=== PATIENT | female | born 1980 | race Hispanic/Latino ===

== ENCOUNTER → 2023-05-13 10:55 | Outpatient (CLI) | payer OTHER, SELFPAY | PROVIDERS: Visit Provider Registered Nurse | DX: N39.0 Urinary tract infection, site not specified (principal) | CPT/HCPCS: 87086 ==

== ENCOUNTER 2023-05-13 11:20 | Emergency (ER) | payer OTHER, SELFPAY ==
[2023-05-13] VITALS (11 sets, daily range): BP systolic 111–142; BP diastolic 68–94; PULSE 86–99; RESP 16–24; TEMP 36; O2SAT 97–100; BMI 39.3
[2023-05-13 12:03] LABS: Add Manual Diff / Slide Review NO; Basophils Absolute Auto 0 /uL (0-100); Basophils Percent Auto 0.4 % (0-2); Eosinophils Absolute Auto 0 /uL (0-450); Eosinophils Percent Auto 0.2 % (2-4); Hematocrit 34.3 % (36-46); Hemoglobin 11.5 g/dL (12.0-16.0); Lymphocytes Absolute Auto 1000 /uL (1100-4500); Lymphocytes Percent Auto 8.6 % (25-40); Mean Corpuscular HGB Conc 33.5 % (30-36); Mean Corpuscular Hemoglobin 27.7 PG (26-34); Mean Corpuscular Volume 82.5 fL (80-100); Monocytes Absolute Auto 700 /uL (0-900); Monocytes Percent Auto 6.2 % (3-14); Neutrophils Absolute Auto 9700 /uL (1500-7000); Neutrophils Percent Auto 84.6 % (50-75); Platelet Count 413 X10^3/uL (150-400); Red Blood Cell Count 4.15 X10^6/uL (4.0-5.2); White Blood Cell Count 11.4 X10^3/uL (4.5-11.0)
[2023-05-13 12:15] LABS: Alanine Aminotransferase 32 IU/L (<35); Albumin 3.7 g/dL (3.5-5.0); Albumin Globulin Ratio 0.8 (1.0-2.8); Alkaline Phosphatase 98 U/L (38-126); Aspartate Aminotransferase 61 IU/L (14-36); BUN Creatinine Ratio 13.2 (6-22); Bilirubin Total 1.2 mg/dL (0.2-1.3); Blood Urea Nitrogen 7 mg/dL (7-17); Calcium 9.1 mg/dL (8.4-10.2); Carbon Dioxide 27 mmol/L (22-32); Chloride 101 mmol/L (98-107); Estimated Glomerular Filt Rate > 60 mL/min (>60); Globulin 4.6 g/dL (1.7-4.1); Glucose 108 mg/dL (70-100); HEMOLYSIS < 15 (0-50); Lipase 29 U/L (23-300); Potassium 3.6 mmol/L (3.4-5.1); Sodium 135 mmol/L (137-145); Total Protein 8.3 g/dL (6.3-8.2)
[2023-05-13 12:21] LABS: Appearance Urine UA CLOUDY; Bilirubin Urine UA 1+ (NEGATIVE); Color Urine UA YELLOW; Glucose Urine UA NEGATIVE (Negative); Ketones Urine UA 2+ (NEGATIVE); Leukocyte Esterase Urine UA 2+ (NEGATIVE); Nitrite Urine UA POSITIVE (Negative); Occult Blood Urine UA 3+ (Negative); Protein Urine UA 1+ (Negative); Specific Gravity Urine UA 1.025 (1.000-1.035)
[2023-05-13 12:22] LABS: pH Urine UA 5.5 (4.5-8.0)
--- NOTE | 2023-05-13 12:22 | PC.NURSE ---
Patient states that they had nausea and vomiting this morning and last vomited at 4am. This RN offered patient the nausea medication that is ordered PRN but they declined stating I don't like to take any medications. Patient denies to having current nausea and isn't actively vomiting.
[2023-05-13 12:24] LABS: Pregnancy Test Urine Negative (Negative)
[2023-05-13 12:26] LABS: Bacteria Urine Many (>30); RBC Urine 5-10/HPF (0-5/HPF); Squamous Epithelial Cell Urine 1-5 /HPF (0-5/HPF); Urine Volume 10mL (spun); WBC Urine 5-10/HPF (0-5/HPF)
--- NOTE | 2023-05-13 12:56 | ED_ITS ---
HPI - Abdominal Pain General Chief Complaint: Abdominal Pain Stated Complaint: [facility] sent for CT possible appendix issue Time Seen by Provider: 05/13/23 12:42 Source: patient Mode of arrival: Ambulatory Limitations: no limitations History of Present Illness HPI narrative: 42-year-old female with recent UTIs. Patient states she had treatment with Bactrim DS twice daily for 5 days on 04/22/2023 she completed this. She has had continued right lower quadrant pain that has gotten worse recently. She notes it radiates to the side but not the flank. Has had some sweats overnight. Subjective fevers. She has had some nausea and vomiting she is doing better with the vomiting currently. She denies any back or flank pain. She states pain is pretty much localized to the right but when she pushes on her abdomen if she pushes on the left it hurts on the right. Patient states she has not had any dysuria, urgency or frequency. She has had diarrheal stools altering with regular stools. Did have one dark stool. No bloody or mucousy stools. Patient states no daily prescription medications. She is taken ibuprofen [id number] which has been helpful. Denies any major surgeries. No known drug allergies. No tobacco, alcohol or recreational drugs. Went to the walk-in clinic which showed a positive urine but was sent for evaluation. Related Data Previous Rx's Medication Instructions Recorded amoxicillin 875 mg-potassium 1 tab PO BID #20 tabs 05/13/23 clavulanate 125 mg tablet amoxicillin 875 mg-potassium 1 tab PO BID #20 tabs 05/13/23 clavulanate 125 mg tablet ondansetron 4 mg disintegrating 4 mg PO Q6H #10 tabs 05/13/23 tablet ondansetron 4 mg disintegrating 4 mg PO Q6H #10 tabs 05/13/23 tablet oxycodone 5 mg tablet 5 mg PO Q6H PRN pain #14 tabs 05/13/23 oxycodone 5 mg tablet 5 mg PO Q6H PRN pain #14 tabs 05/13/23 oxycodone 5 mg tablet 5 mg PO Q6H PRN pain #14 tabs 05/13/23 oxycodone 5 mg tablet 5 mg PO QID PRN pain #14 tabs 05/13/23 oxycodone-acetaminophen 5 mg-325 1 tab PO QID PRN pain #14 tabs 05/13/23 mg tablet (Percocet) Allergies Allergy/AdvReac Type Severity Reaction Status Date / Time No Known Drug Allergies Allergy Verified 05/13/23 11:11 Review of Systems Review of Systems ROS Unobtainable: All systems reviewed & are unremarkable except as noted in HPI and below Patient History Social History Smoking Status: Never smoker Smoking Status: Never smoker Substance Use Type: does not use Exam Narrative Exam Narrative: GENERAL: Alert and oriented x three, female in mild distress. HEENT: Head normocephalic, atraumatic, EOMI, pupils reactive, face symmetric, moist mucous membranes NECK: Supple, full range of motion CARDIOVASCULAR: Regular rate and rhythm without murmurs, rubs or gallops. RESPIRATORY: Breath sounds equal bilaterally, no wheezes rales or rhonchi. ABDOMEN: Soft, positive for right lower quadrant tenderness. Positive for tenderness on the right when palpated on the left, Normoactive bowel sounds all 4 quadrants. No guarding or rebound, rigidity, no mass : No CVA tenderness bilaterally. EXTREMITIES: Normal range of motion, no clubbing or edema. Neurovascularly intact NEUROLOGICAL: Cranial nerves II through XII grossly intact. Moving all extremities SKIN: Warm, dry, no petechiae, no rashes or lesions. Initial Vital Signs Initial Vital Signs: Vital Signs Temperature 96.8 F L 05/13/23 11:31 Pulse Rate 99 H 05/13/23 11:31 Respiratory Rate 18 05/13/23 11:31 Blood Pressure 142/94 H 05/13/23 11:31 Pulse Oximetry 99 05/13/23 11:31 Oxygen Delivery Method Room Air 05/13/23 11:31 Course Orders Ordered: ED Orders 05/13/23 11:55 Cancer Antigen 125 Stat Complete Blood Count AUTO DIFF Stat Comprehensive Metabolic Panel Stat Human Epididymis Prot 4 Stat Inhibin B Stat Lipase Stat 05/13/23 12:15 Test Urine Stat 05/13/23 12:16 Ictotest Urine Stat Urinalysis and Microscopic Stat 05/13/23 13:55 CT abdomen pelvis w con Stat 05/13/23 14:55 US pelvic complete Stat Discontinued Medications Ampicillin Sodium/Sulbactam (Sodium 3 gm/ Sodium Chloride) 100 mls @ 200 mls/hr IV NOW ONE Stop: 05/13/23 14:48 Last Infusion: 05/13/23 16:10 Dose: Infused Documented By: Admin: 05/13/23 15:18 Dose: 200 mls/hr Documented By: BENJAMIN Ondansetron HCl (Ondansetron 4 Mg/2 Ml Inj) 4 mg IV NOW PRN PRN Reason: Nausea And Vomiting Ondansetron HCl (Ondansetron 4 Mg Odt) 4 mg PO NOW PRN PRN Reason: Nausea And Vomiting Vital Signs Vital signs: Vital Signs - 8 hr 05/13/23 12:00 05/13/23 12:01 05/13/23 12:01 Pulse Rate 93 H 94 H Respiratory Rate 24 17 Blood Pressure 116/71 Pulse Oximetry 97 97 Oxygen Delivery Method 05/13/23 12:30 05/13/23 12:30 05/13/23 13:00 Pulse Rate 87 Respiratory Rate 20 Blood Pressure 120/72 116/71 Pulse Oximetry 97 Oxygen Delivery Method 05/13/23 13:00 05/13/23 13:30 05/13/23 13:30 Pulse Rate 89 86 Respiratory Rate 22 16 Blood Pressure 120/81 Pulse Oximetry 98 99 Oxygen Delivery Method Room Air 05/13/23 13:45 05/13/23 16:17 05/13/23 16:18 Pulse Rate 90 86 Respiratory Rate Blood Pressure 117/70 Pulse Oximetry 100 98 Oxygen Delivery Method 05/13/23 16:18 05/13/23 16:30 05/13/23 16:30 Pulse Rate 88 88 Respiratory Rate 21 21 Blood Pressure 111/68 Pulse Oximetry 99 99 Oxygen Delivery Method MDM - Abdominal Pain Lab Data 05/13/23 11:55 05/13/23 11:55 Labs: Lab Results 05/13/23 05/13/23 05/13/23 Range/Units 11:55 12:15 12:16 WBC 11.4 H (4.5-11.0) X10^3/uL RBC 4.15 (4.0-5.2) X10^6/uL Hgb 11.5 L (12.0-16.0) g/dL Hct 34.3 L (36-46) % MCV 82.5 (80-100) fL MCH 27.7 (26-34) PG MCHC 33.5 (30-36) % RDW 14.0 (11.6-14.8) % Plt Count 413 H (150-400) X10^3/uL Neut % (Auto) 84.6 H (50-75) % Lymph % (Auto) 8.6 L (25-40) % [place] % (Auto) 6.2 (3-14) % Eos % (Auto) 0.2 L (2-4) % Baso % (Auto) 0.4 (0-2) % Neut # (Auto) 9700 H (9993-4116) /uL Lymph # (Auto) 1000 L (3016-0066) /uL [place] # (Auto) 700 (0-900) /uL Eos # (Auto) 0 (0-450) /uL Baso # (Auto) 0 (0-100) /uL Sodium 135 L (137-145) mmol/L Potassium 3.6 (3.4-5.1) mmol/L Chloride 101 (98-107) mmol/L Carbon Dioxide 27 (22-32) mmol/L BUN 7 (7-17) mg/dL Creatinine 0.53 (0.52-1.04) mg/dL Estimated GFR > 60 (>60) mL/min BUN/Creatinine Ratio 13.2 (6-22) Glucose 108 H (70-100) mg/dL Calcium 9.1 (8.4-10.2) mg/dL Total Bilirubin 1.2 (0.2-1.3) mg/dL AST 61 H (14-36) IU/L ALT 32 (<35) IU/L Alkaline Phosphatase 98 (38-126) U/L Total Protein 8.3 H (6.3-8.2) g/dL Albumin 3.7 (3.5-5.0) g/dL Globulin 4.6 H (1.7-4.1) g/dL Albumin/Globulin Ratio 0.8 L (1.0-2.8) Lipase 29 (23-300) U/L CA 125 Antigen 79.7 H (0-35) U/mL Urine Color Yellow Urine Appearance Cloudy Urine pH 5.5 (4.5-8.0) Ur Specific [place] 1.025 (1.000-1.035) Urine Protein 1+ H (Negative) Urine Glucose (UA) Negative (Negative) g/dL Urine Ketones 2+ H (NEGATIVE) Urine Occult Blood 3+ H (Negative) Urine Nitrate Positive H (Negative) Urine Bilirubin 1+ H (NEGATIVE) Ur Bilirubin Confirm TNP Urine Urobilinogen 1.0 (0.2) E.U./dL Ur Leukocyte Esterase 2+ H (NEGATIVE) Urine RBC 5-10/hpf H (0-5/HPF) Urine WBC 5-10/hpf H (0-5/HPF) Ur Squamous Epith Cells 1-5 /hpf (0-5/HPF) Urine Bacteria Many (>30) H (None) Vol Urine Centrifuged 10ml (spun) Urine Test Negative (Negative) Imaging Data CT scan - abdomen/pelvis: Radiologist's Impression: [address] [address] [address] Scan Report Signed Patient: Kimberli Duran MR#: [id number] : 1980 Acct:[id number] Age/Sex: 42 / F Date of Service: 05/13/23 Loc: ED Accession Number: [id number] Procedure: CT abdomen pelvis w con Ordering Provider: Bibi Alvarado D.O. PROCEDURE: CT ABDOMEN PELVIS W CON INDICATIONS: +UTI, RLQ pain, increased w/ palp L, r/o appy TECHNIQUE: After the administration of intravenous contrast, axial sections acquired from the lung bases to the pubic symphysis. Coronal and sagittal reformats were performed. For radiation dose reduction, the following was used: automated exposure control, adjustment of mA and/or kV according to patient size. COMPARISON: None. FINDINGS: Image quality: Diagnostic. Lower Chest: No significant findings. ABDOMEN: Liver: No solid mass. Gallbladder: No radiopaque gallstones or wall thickening. Biliary ducts: No biliary dilation. Pancreas: No ductal dilation. Spleen: Size is within normal limits. Adrenal Glands: No adrenal nodules. Kidneys and Ureters: There is mild left hydronephrosis and left ureteral dilatation extending into the left adnexa. No right hydronephrosis. No solid mass. No complex renal cystic lesion which requires follow up. 2 mm nonobstructing right interpolar renal calculus is present. Stomach and Bowel: Multiple moderately distended loops of small-bowel are present. Terminal ileum is decompressed. Colon is decompressed. Appendix is not seen. No evidence of appendicitis. Peritoneum: No pneumoperitoneum. A small amount of high density ascites is present predominantly within the pelvis. Severe fat stranding is present , predominantly within the pelvis anteriorly. Peritoneal nodularity is seen within the right lower abdomen anteriorly. Ventral Wall: No significant ventral hernia. Abdominal Nodes: No retroperitoneal or mesenteric adenopathy by size criteria. Vessels: Aorta and inferior vena cava are normal in size. PELVIS: Pelvic Organs: There is a thick-walled cystic focus within the left adnexa measuring 43 mm diameter. Intrauterine device is present. Bladder: No bladder wall thickening, accounting for underdistention. Pelvic Nodes: No enlarged lymph nodes. Miscellaneous: No inguinal hernias are seen. Bones: No aggressive osseous abnormality. IMPRESSION: 1. High density fluid within the pelvis, consistent with infection versus hemorrhage. 2. Mesenteric fat stranding in nodularity, consistent with infection versus carcinomatosis. 3. Thick-walled left adnexal cyst, possibly indicating a tubo-ovarian abscess given the clinical history of urinary tract infection. Continued follow-up is recommended to exclude underlying neoplasm. 4. Appendix is not seen. No evidence of appendicitis. 5. Dilated small bowel loops, indicating small bowel obstruction. 6. The left adnexal lesion is associated with left ureteral obstruction, and mild left hydronephrosis. 7. Nonobstructing right renal calculus. Dictated by: Dee Dee Rod M.D. on 05/13/2023 at 14:17 Approved by: Dee Dee Rod M.D. on 05/13/2023 at 14:22 US - WOOD M[employer]ING MACHINE OPERATOR: Radiologist's Impression: Close Pelvis Ultrasound (Signed) Dee Dee Rod - 05/13/23 Abdomen/Pelvis CT (Signed) Dee Dee Rod - 05/13/23 Launch?[address] [address] Ultrasound Report Signed Patient: Kimberli Duran MR#: [id number] : 1980 Acct:[id number] Age/Sex: 42 / F Date of Service: 05/13/23 Loc: ED Accession Number: [id number] Procedure: US pelvic complete Ordering Provider: Bibi Alvarado D.O. PROCEDURE: US PELVIC COMPLETE INDICATIONS: LEFT ADNEXAL MASS ON CT TECHNIQUE: Real-time scanning was performed of the pelvic organs, with image documentation. Additional endovaginal scanning was necessary due to incomplete visualization of the adnexal and endometrial structures by transabdominal scanning. COMPARISON: [facility], CT, CT ABDOMEN PELVIS W CON, 05/13/2023, 14:05. FINDINGS: Uterus: Uterus is anteverted and normal in size at 8.0 x 4.1 x 6.4 cm. The myometrium is homogeneous. The endometrium measures 5 mm combined thickness. Intrauterine device is grossly positioned Ovaries: The right ovary measures 2.0 x 2.1 x 1.3 cm, with a calculated ovarian volume of 3.0 cc. The left ovary measures 5.9 x 3.7 x 4.3 cm, with a calculated ovarian volume of 50 cc. The ovaries have a normal sonographic appearance. Less than 12 follicles can be seen in each ovary. No adnexal masses are seen. There are 2 complex cysts within the left ovary measuring 40 mm and 21 mm. Other: No pathologic free abdominal or pelvic fluid. IMPRESSION: 1. Complex left ovarian cysts. We strive to produce accurate, complete, and clear reports of imaging services. To assist us in improving patient care, this report was composed using standard report templates and voice recognition software. Therefore, it may contain abnormal punctuation, insertions and/or omissions. Occasional wrong-word or sound-alike substitutions may occur. Though we review the report and make efforts to correct it, we do recommend that the report be read carefully in proper context to recognize any text inaccuracies. Dictated by: Dee Dee Rod M.D. on 05/13/2023 at 16:16 Approved by: Dee Dee Rod M.D. on 05/13/2023 at 16:18 [facility] Narrative Medical decision making narrative: 42-year-old female with at least a week's worth of right lower quadrant pain which has been slowly worsening. She has had some night sweats, subjective fevers. Does have a nitrite positive urine but also has tenderness in the right lower quadrant and increased pain on the right lower quadrant with palpation of the left. Patient does still have her appendix. She does not appear septic. Vitals appear appropriate. Patient has a white count 11.4 hemoglobin 11 5 with a hematocrit of 34, platelets are 413 leftward shift. Sodium is 135 otherwise normal electrolytes renal function, glucose of 108, AST 61 ALT, total bili alk phos are negative. Lipase is 29. Total protein and globulin are elevated. Urine is negative, patient has nitrate positive urine with 5-10 RBCs 5-10 WBCs and many bacteria. Discussed with patient may have a UTI she does not have any flank pain making pyelonephritis less likely but is tender in the right lower quadrant. After discussion about abdominal ultrasound versus CT to rule out appendicitis patient elects for CT imaging. CT imaging shows density fluid within the pelvis consistent with infection versus hemorrhage, mesenteric fat stranding and nodularity consistent with infection versus carcinomatosis, thick-walled left adnexal this indicating tubo-ovarian abscess given recent history of UTI, continue follow up to exclude underlying neoplasm, appendix not seen but no evidence of appendicitis, dilated small bowel loops and can not indicating small bowel obstruction. Left adnexal lesion left ureteral obstruction and mid left hydro. Nonobstructing right renal calculi. Spoke with Dr. Saavedra for OBGYN. Asked if we can add on a CA 125, Pelvic ultrasound for better delineation and she will come and see patient. Updated patient about current plan. Plan for antibiotics for potential infection, pelvic ultrasound was reviewed with Dr. Saavedra. Patient will be seen in the office. Patient feels comfortable with this plan. Patient seen by Dr. Saavedra in the department. CA 125 is elevated she asked her add on an 2 additional labs. Patient has follow-up set up with the 23 of May with the office. Dr. Saavedra was sent saw her prescriptions but 1 of them would not go through so had to be recent by myself and then changed as they had no oxycodone and had to be changed to Percocet. Discharge Plan Departure Patient Disposition: Home Clinical Impression: Complex ovarian cyst UTI (urinary tract infection) Qualifiers: Urinary tract infection type: acute cystitis Hematuria presence: with hematuria Qualified Code(s): N30.01 - Acute cystitis with hematuria Activity Restrictions/Additional Instructions: Follow up with Dr. Saavedra at your appointment on May 23 at 9am. You do have labs currently pending that will take several days to result. Follow up with Dr. Saavedra/OBGYN for these results. Take antibiotics until completed. Take Zofran 1 tablet every 6 hours as needed for nausea. Take pain medication as prescribed. May take 1-2 tablets every 6 hours as needed. Prescription sent to [facility] in [place] by Dr. Saavedra. Please return for fevers, new or worsening abdominal back or flank pain, persistent vomiting, inability to have a bowel movement, difficulty with urination or other new or concerning changes. Prescriptions: New amoxicillin-pot clavulanate 875-125 mg tablet 1 tab PO BID Qty: 20 0RF ondansetron 4 mg tablet,disintegrating 4 mg PO Q6H Qty: 10 0RF oxycodone 5 mg tablet 5 mg PO Q6H PRN (Reason: pain) Qty: 14 0RF amoxicillin-pot clavulanate 875-125 mg tablet 1 tab PO BID Qty: 20 0RF ondansetron 4 mg tablet,disintegrating 4 mg PO Q6H Qty: 10 0RF oxycodone 5 mg tablet 5 mg PO Q6H PRN (Reason: pain) Qty: 14 0RF oxycodone 5 mg tablet 5 mg PO Q6H PRN (Reason: pain) Qty: 14 0RF oxycodone 5 mg tablet 5 mg PO QID PRN (Reason: pain) Qty: 14 0RF oxycodone-acetaminophen [Percocet] 5-325 mg tablet 1 tab PO QID PRN (Reason: pain) Qty: 14 0RF Referrals: Kathie Saavedra MD [Physician] - Miscellaneous,DoctorMD [Primary Care Provider] - Stand Alone Forms: Patient Portal/API
--- NOTE | 2023-05-13 13:55 | DI.CT.S_ITS ---
PROCEDURE: CT ABDOMEN PELVIS W CON INDICATIONS: +UTI, RLQ pain, increased w/ palp L, r/o appy TECHNIQUE: After the administration of intravenous contrast, axial sections acquired from the lung bases to the pubic symphysis. Coronal and sagittal reformats were performed. For radiation dose reduction, the following was used: automated exposure control, adjustment of mA and/or kV according to patient size. COMPARISON: None. FINDINGS: Image quality: Diagnostic. Lower Chest: No significant findings. ABDOMEN: Liver: No solid mass. Gallbladder: No radiopaque gallstones or wall thickening. Biliary ducts: No biliary dilation. Pancreas: No ductal dilation. Spleen: Size is within normal limits. Adrenal Glands: No adrenal nodules. Kidneys and Ureters: There is mild left hydronephrosis and left ureteral dilatation extending into the left adnexa. No right hydronephrosis. No solid mass. No complex renal cystic lesion which requires follow up. 2 mm nonobstructing right interpolar renal calculus is present. Stomach and Bowel: Multiple moderately distended loops of small-bowel are present. Terminal ileum is decompressed. Colon is decompressed. Appendix is not seen. No evidence of appendicitis. Peritoneum: No pneumoperitoneum. A small amount of high density ascites is present predominantly within the pelvis. Severe fat stranding is present , predominantly within the pelvis anteriorly. Peritoneal nodularity is seen within the right lower abdomen anteriorly. Ventral Wall: No significant ventral hernia. Abdominal Nodes: No retroperitoneal or mesenteric adenopathy by size criteria. Vessels: Aorta and inferior vena cava are normal in size. PELVIS: Pelvic Organs: There is a thick-walled cystic focus within the left adnexa measuring 43 mm diameter. Intrauterine device is present. Bladder: No bladder wall thickening, accounting for underdistention. Pelvic Nodes: No enlarged lymph nodes. Miscellaneous: No inguinal hernias are seen. Bones: No aggressive osseous abnormality. IMPRESSION: 1. High density fluid within the pelvis, consistent with infection versus hemorrhage. 2. Mesenteric fat stranding in nodularity, consistent with infection versus carcinomatosis. 3. Thick-walled left adnexal cyst, possibly indicating a tubo-ovarian abscess given the clinical history of urinary tract infection. Continued follow-up is recommended to exclude underlying neoplasm. 4. Appendix is not seen. No evidence of appendicitis. 5. Dilated small bowel loops, indicating small bowel obstruction. 6. The left adnexal lesion is associated with left ureteral obstruction, and mild left hydronephrosis. 7. Nonobstructing right renal calculus. Dictated by: Dee Dee Rod M.D. on 05/13/2023 at 14:17 Approved by: Dee Dee Rod M.D. on 05/13/2023 at 14:22
--- NOTE | 2023-05-13 14:55 | DI.US.S_ITS ---
PROCEDURE: US PELVIC COMPLETE INDICATIONS: LEFT ADNEXAL MASS ON CT TECHNIQUE: Real-time scanning was performed of the pelvic organs, with image documentation. Additional endovaginal scanning was necessary due to incomplete visualization of the adnexal and endometrial structures by transabdominal scanning. COMPARISON: [facility], CT, CT ABDOMEN PELVIS W CON, 05/13/2023, 14:05. FINDINGS: Uterus: Uterus is anteverted and normal in size at 8.0 x 4.1 x 6.4 cm. The myometrium is homogeneous. The endometrium measures 5 mm combined thickness. Intrauterine device is grossly positioned Ovaries: The right ovary measures 2.0 x 2.1 x 1.3 cm, with a calculated ovarian volume of 3.0 cc. The left ovary measures 5.9 x 3.7 x 4.3 cm, with a calculated ovarian volume of 50 cc. The ovaries have a normal sonographic appearance. Less than 12 follicles can be seen in each ovary. No adnexal masses are seen. There are 2 complex cysts within the left ovary measuring 40 mm and 21 mm. Other: No pathologic free abdominal or pelvic fluid. IMPRESSION: 1. Complex left ovarian cysts. We strive to produce accurate, complete, and clear reports of imaging services. To assist us in improving patient care, this report was composed using standard report templates and voice recognition software. Therefore, it may contain abnormal punctuation, insertions and/or omissions. Occasional wrong-word or sound-alike substitutions may occur. Though we review the report and make efforts to correct it, we do recommend that the report be read carefully in proper context to recognize any text inaccuracies. Dictated by: Dee Dee Rod M.D. on 05/13/2023 at 16:16 Approved by: Dee Dee Rod M.D. on 05/13/2023 at 16:18
[2023-05-13] MEDS: AMPICILLIN/SULBACTAM 3 GM 3 GM in SODIUM CHLORIDE 0.9% 100 ML IV (15:18)
[2023-05-13 15:45] LABS: Cancer Antigen 125 79.7 U/mL (0-35)
--- NOTE | 2023-05-13 16:10 | PC.NURSE ---
Dr. Saavedra at patient bedside.
--- NOTE | 2023-05-13 16:29 | PM.CN ---
History of Present Illness Consult details Date Patient Seen: 05/13/23 Time Patient Seen: 16:29 Chief complaint: [place] sent for CT possible appendix issue Reason for consult: Right lower quadrant pain, mass on the left ovary Narrative: Patient is a 42-year-old 3 para 3 who presented to the emergency department with right lower quadrant pain. Patient reports that her pain started about 3 weeks ago. She had some nausea. She has had some sweats. She has just not felt well. She presented this morning because things have gotten a little better but then they worsened at this morning. She had an episode of vomiting. She is having right lower quadrant pain worsened. Slight decrease in appetite. No change in bladder. Has had some diarrhea. She was treated for a UTI with 5 days of antibiotics. She has had slight discoloration of her vaginal discharge. She still has her appendix. She has had 3 spontaneous vaginal deliveries without any complications during the , labor, or delivery. She is using an IUD for contraceptive management. She had a CT scan which showed a mass on the left ovary. This was followed by a pelvic ultrasound which shows a complex cyst on the left ovary. There was good flow into the left ovary. The right ovary appears normal. CT of abdomen/pelvis IMPRESSION: 1. High density fluid within the pelvis, consistent with infection versus hemorrhage. 2. Mesenteric fat stranding in nodularity, consistent with infection versus carcinomatosis. 3. Thick-walled left adnexal cyst, possibly indicating a tubo-ovarian abscess given the clinical history of urinary tract infection. Continued follow-up is recommended to exclude underlying neoplasm. 4. Appendix is not seen. No evidence of appendicitis. 5. Dilated small bowel loops, indicating small bowel obstruction. 6. The left adnexal lesion is associated with left ureteral obstruction, and mild left hydronephrosis. 7. Nonobstructing right renal calculus. Pelvic Ultrasound: IMPRESSION: 1. Complex left ovarian cysts. We strive to produce accurate, complete, and clear reports of imaging services. To assist us in improving patient care, this report was composed using standard report templates and voice recognition software. Therefore, it may contain abnormal punctuation, insertions and/or omissions. Occasional wrong-word or sound-alike substitutions may occur. Though we review the report and make efforts to correct it, we do recommend that the report be read carefully in proper context to recognize any text inaccuracies. CA-125 was 79.9 Meds Home Medications and Allergies Home Medications Medication Instructions Recorded Confirmed Type No Known Home Medications 02/13/19 05/13/23 History Allergies Allergy/AdvReac Type Severity Reaction Status Date / Time No Known Drug Allergies Allergy Verified 05/13/23 11:11 Exam Vital Signs (past 8 hours): - 05/13/23 11:31 05/13/23 11:44 05/13/23 11:44 Temperature 96.8 F L Pulse Rate 99 H 99 H Respiratory Rate 18 Blood Pressure 142/94 H 125/78 Pulse Oximetry 99 98 Oxygen Delivery Method Room Air 05/13/23 12:00 05/13/23 12:01 05/13/23 12:01 Temperature Pulse Rate 93 H 94 H Respiratory Rate 24 17 Blood Pressure 116/71 Pulse Oximetry 97 97 Oxygen Delivery Method 05/13/23 12:30 05/13/23 12:30 05/13/23 13:00 Temperature Pulse Rate 87 Respiratory Rate 20 Blood Pressure 120/72 116/71 Pulse Oximetry 97 Oxygen Delivery Method 05/13/23 13:00 05/13/23 13:30 05/13/23 13:30 Temperature Pulse Rate 89 86 Respiratory Rate 22 16 Blood Pressure 120/81 Pulse Oximetry 98 99 Oxygen Delivery Method Room Air 05/13/23 13:45 05/13/23 16:17 Temperature Pulse Rate 90 86 Respiratory Rate Blood Pressure Pulse Oximetry 100 98 Oxygen Delivery Method Oxygen Delivery Method Room Air Narrative Exam Narrative: Generally: A well-developed, well nourished, pleasant female, no acute distress, lying on the gurney. Lungs: Clear to auscultation bilaterally Cardiovascular: Regular rate and rhythm Abdomen: Soft and flat. No guarding or rebound tenderness. No hepatosplenomegaly. No masses palpable Objective Labs 05/13/23 11:55 05/13/23 11:55 Labs: Laboratory Results - last 24 hr 05/13/23 05/13/23 05/13/23 11:55 12:15 12:16 WBC 11.4 H RBC 4.15 Hgb 11.5 L Hct 34.3 L MCV 82.5 MCH 27.7 MCHC 33.5 RDW 14.0 Plt Count 413 H Neut % (Auto) 84.6 H Lymph % (Auto) 8.6 L [place] % (Auto) 6.2 Eos % (Auto) 0.2 L Baso % (Auto) 0.4 Neut # (Auto) 9700 H Lymph # (Auto) 1000 L [place] # (Auto) 700 Eos # (Auto) 0 Baso # (Auto) 0 Sodium 135 L Potassium 3.6 Chloride 101 Carbon Dioxide 27 BUN 7 Creatinine 0.53 Estimated GFR > 60 BUN/Creatinine Ratio 13.2 Glucose 108 H Calcium 9.1 Total Bilirubin 1.2 AST 61 H ALT 32 Alkaline Phosphatase 98 Total Protein 8.3 H Albumin 3.7 Globulin 4.6 H Albumin/Globulin Ratio 0.8 L Lipase 29 CA 125 Antigen 79.7 H Urine Color Yellow Urine Appearance Cloudy Urine pH 5.5 Ur Specific [place] 1.025 Urine Protein 1+ H Urine Glucose (UA) Negative Urine Ketones 2+ H Urine Occult Blood 3+ H Urine Nitrate Positive H Urine Bilirubin 1+ H Ur Bilirubin Confirm TNP Urine Urobilinogen 1.0 Ur Leukocyte Esterase 2+ H Urine RBC 5-10/hpf H Urine WBC 5-10/hpf H Ur Squamous Epith Cells 1-5 /hpf Urine Bacteria Many (>30) H Vol Urine Centrifuged 10ml (spun) Urine Test Negative PFSH Tobacco & Substance Use Smoking Status: Never smoker Assessment & Plan Assessment and plan (1) Complex ovarian cyst: Status: Acute (2) UTI (urinary tract infection): Qualifiers: Hematuria presence: with hematuria Urinary tract infection type: acute cystitis Qualified Code(s): N30.01 - Acute cystitis with hematuria Status: Acute (3) Elevated CA-125: Status: Acute Plan: Assessment: 42-year-old 3 para 3 with a complex left adnexal mass, recurrent urinary tract infection, and elevated CA 125 Plan: Augmentin 875 mg b.i.d. x7 days Ondansetron 4 mg ODT Rx for pain meds Inhibin B and HE 4 ordered Follow-up 05/23/23 at 9:00 a.m. Patient to return to ED if she has uncontrolled nausea and vomiting or worsening pain.
== END 2023-05-13 16:41 | disposition home or self-care (01) ==
PROVIDERS: Emergency Provider Emergency Medicine
DX: N30.01 Acute cystitis with hematuria (principal); N83.292 Other ovarian cyst, left side; R97.1 Elevated cancer antigen 125 [CA 125]
CPT/HCPCS: 36415; 74177; 76830; 76856; 80053; 81001; 81025; 83520; 83690; 85025; 86304; 86305; 87086; 93975; 96365; 99284; J0295; Q9967

== ENCOUNTER → 2023-05-23 11:47 | Outpatient (CLI) | payer OTHER, SELFPAY ==
[2023-05-24 13:36] LABS: Candida species Negative (Negative); Gardnerella vaginalis Negative (Negative); Trichomoas vaginalis Positive (Negative)
== END ==
PROVIDERS: Visit Provider Obstetrics & Gynecology
DX: N89.8 Other specified noninflammatory disorders of vagina (principal); N76.0 Acute vaginitis
CPT/HCPCS: 87070; 87205; 87480; 87510; 87660

== ENCOUNTER 2023-06-13 11:20 | Inpatient (IN) | payer OTHER, SELFPAY ==
[2023-06-11 07:50] VITALS: BMI 38.7
[2023-06-13 11:45] VITALS: BP 143/85; PULSE 104; RESP 16; TEMP 37.1; O2SAT 98; BMI 38.7
[2023-06-13] MEDS: LACTATED RINGERS 1,000 ML 21 ML IV (12:02)
--- NOTE | 2023-06-13 14:16 | PM.GYNHP.1 ---
History of Present Illness History of Present Illness Reason for admission: pelvic pain Narrative: Kimberli Duran is a 42 year old female 3 para 3 who presents for a diagnostic laparoscopy with bilateral salpingectomy, possible left ovarian cystectomy versus left oophorectomy. This is being done due to persistent pelvic pain and a presumed dermoid on ultrasound. Patient is also not desiring anymore children. [facility] Social History Smoking Status: Never smoker alcohol intake: current Meds Home Medications and Allergies Home Medications Medication Instructions Recorded Confirmed Type oxycodone 5 mg tablet 5 mg PO Q6H PRN pain #14 tabs 05/13/23 06/12/23 Rx oxycodone 5 mg tablet 5 mg PO Q6H PRN pain #14 tabs 05/13/23 06/12/23 Rx oxycodone 5 mg tablet 5 mg PO Q6H PRN pain #14 tabs 05/13/23 06/12/23 Rx oxycodone 5 mg tablet 5 mg PO QID PRN pain #14 tabs 05/13/23 06/12/23 Rx oxycodone-acetaminophen 5 mg-325 1 tab PO QID PRN pain #14 tabs 05/13/23 06/12/23 Rx mg tablet (Percocet) Allergies Allergy/AdvReac Type Severity Reaction Status Date / Time No Known Drug Allergies Allergy Verified 06/13/23 11:45 Exam Vital Signs (past 8 hours): - 06/13/23 11:45 Temperature 98.7 F Pulse Rate 104 H Respiratory Rate 16 Blood Pressure 143/85 H Pulse Oximetry 98 Oxygen Delivery Method Room Air Oxygen Delivery Method Room Air Narrative Exam Narrative: HEENT: No thyromegaly, no anterior cervical or supraclavicular lymphadenopathy. Lungs:Clear to auscultation bilaterally, no wheezes. Cardiovascular: Regular rate and rhythm, no murmurs, rubs, or gallops. Abdomen: No scars. No hepatosplenomegaly. No masses palpable. External genitalia: Normal Vagina: Normal Cervix: Normal Bimanual exam: 7 Week size anteverted uterus. Mobile. Left adnexal tenderness. 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 The risks including bleeding, infection, injury to the bowel, bladder, or ureters, or uterine perforation. She understands these risks and agrees to proceed. A full par Q was held and consent form was signed.
--- NOTE | 2023-06-13 14:19 | PM.PREOP ---
Pre-operative Note Interval Note History & Physical reviewed/Exam performed by Physician: Yes Changes to H&P: No H&P completed within 30 days and has changed as indicated here:: 06/13/23
[2023-06-13] MEDS: CEFAZOLIN 2 GM/100 ML PREMIX 100 ML IV (15:18)
--- NOTE | 2023-06-13 15:42 | SUR.OPER ---
Lithotomy on padded OR bed, head on pillow, arms secured on padded arm boards at <90 degrees abduction. Legs secured in padded yellow fins stirrups.
[2023-06-13] MEDS: PIPERACILLIN/TAZO 3.375 GM in SODIUM CHLORIDE 0.9% 100 ML IV ×2 (16:01→22:18)
[2023-06-13] MEDS: BUPIVACAINE 0.5% (PF) 30 ML VIAL INJ (19:12)
[2023-06-13 20:03] LABS: Add Manual Diff / Slide Review NO; Basophils Absolute Auto 0 /uL (0-100); Basophils Percent Auto 0.2 % (0-2); Eosinophils Absolute Auto 0 /uL (0-450); Hematocrit 32.4 % (36-46); Hemoglobin 10.6 g/dL (12.0-16.0); Lymphocytes Absolute Auto 700 /uL (1100-4500); Lymphocytes Percent Auto 5.1 % (25-40); Mean Corpuscular HGB Conc 32.8 % (30-36); Mean Corpuscular Hemoglobin 27.5 PG (26-34); Mean Corpuscular Volume 83.8 fL (80-100); Monocytes Absolute Auto 200 /uL (0-900); Monocytes Percent Auto 1.1 % (3-14); Neutrophils Absolute Auto 13600 /uL (1500-7000); Neutrophils Percent Auto 93.6 % (50-75); Platelet Count 191 X10^3/uL (150-400); Red Blood Cell Count 3.87 X10^6/uL (4.0-5.2); Red Cell Distribution Width 15.7 % (11.6-14.8); White Blood Cell Count 14.5 X10^3/uL (4.5-11.0)
--- NOTE | 2023-06-13 20:08 | PM.OP.1 ---
Operative Date/Time/Diagnoses Date of procedure: 06/13/23 Time of procedure: 20:08 Pre-op diagnosis: Intraoperative small-bowel injury Post-op diagnosis: same Procedure & Clinicians Procedure: 1. Exploratory laparotomy 2. Small bowel enterotomy primary repair 3. Extensive lysis of adhesions 4. Sigmoid colectomy 5. Drainage of pelvic abscess 6. Temporary abdominal closure Same procedure as scheduled: No Surgeon: Luis Lopez Family Medicine Resident: Lamont Duffy Anesthesia Type: General Operative Notes Procedure in detail: The patient is a 42-year-old woman who was undergoing a diagnostic laparoscopy with Dr. Saniya bhatt for presumed left ovarian dermoid cyst. Dr. Saavedra requested an intraoperative consultation after placing an umbilical 5 mm laparoscopic port using an Optiview and saw what appeared to be the inside of small bowel. I came to the operating room and saw that the camera was insight of what appeared to be small bowel with normal-appearing mucosa. We started out by making a small periumbilical incision to examine the bowel and repair the enterotomy. The enterotomy was closed with about 5 interrupted 3-0 silk sutures in the transverse manner. An attempt was made to examine the posterior wall of the small bowel but it was quite adherent to surrounding loops of bowel. The incision was opened slightly larger and it was noted that there was a dense mass of small bowel loops that were densely adherent to the lower anterior abdominal wall and the pelvic sidewalls. At this point we converted to an exploratory laparotomy by creating a low midline incision that extended from just above the umbilicus to the pubis. An Joe wound retractor was placed. There was significant inflammatory change in the pelvis involving edematous loops of small bowel and adnexal structures. Careful lysis of adhesions lasting greater than 1 hour ensued. The question came up that she could potentially have had a perforated appendicitis or perhaps an appendiceal malignancy and so dissection extended to the cecum and appendix but this was eventually felt to be essentially normal with perhaps some reactive inflammatory changes near the appendix tip. Peritoneal washings were obtained. At this point Dr. Duffy was consulted for a second opinion regarding condition of her bowel. We continued lysis of adhesions and it became clear eventually that the source of the inflammation was most likely severe sigmoid diverticulitis. There was a segment of the mid sigmoid colon that was the most likely source of the perforation although there was no active leakage for the moment. We elected to resect the diseased segment and the initial plan was to perform a primary anastomosis with a diverting loop ileostomy. The diseased segment of sigmoid colon was resected with 2 firings of the contour stapler with a green load. We resected approximately 10 cm of sigmoid colon. We divided the mesentery close to the bowel with the power seal device. There was some venous oozing posterior to the mid rectum. Initially the power seal device was used to control the bleeding along with a piece of Surgicel. We did resect portion of the right tube and ovary using the power seal device to create better visualization. We placed the anvil from a 29 EEA stapler into the proximal colon and closed it with a 2-0 PDS suture in a pursestring fashion. The smallest metal dilator was started with some loop into the rectum. There seemed to be point of obstruction roughly at the peritoneal reflection. A colonoscope was inserted and was able to be maneuvered to staple line. There did not appear to be any obvious stricture. Gentle manipulation then allowed the smallest metal dilator to be advanced to the staple line. Next, the EEA stapler was inserted and attempts were made to manipulate it up to the staple line but it did not pass easily. At this point it was noted that there was a large tear in the rectum. At approximately the level of the peritoneal reflection. Due to the level of the edema it was decided to abandon the plan for a primary anastomosis and create an end colostomy. At this point it was noted that there was some blood and clot in the Wright bag and methylene blue was injected into the bladder and a bladder injury was identified. It was assumed that the hole in the bladder was at the dome of the bladder but it was very difficult to identify any the anatomy due to the degree of edema and swelling. At this point Dr. Duffy, Dr. Saavedra and Dr. Lopez discuss the situation in the options. It was you need enema asleep decided that the patient would be best served transferred to another facility that had urological services as well as critical care and colorectal surgery. We irrigated the pelvis with about 2 L of warm saline. The anvil was removed and the distal colon was stapled off with the contour stapler. Hemostasis was noted. Finally we created a temporary abdominal closure using a fenestrated sheet of plastic between the viscera and abdominal wall. We then placed a blue towel in the subcutaneous space along with 2 fenestrated drains connected to a negative pressure canister. EBL: 50 mL Specimen: Sigmoid colon and right salpinx and possibly the right ovary Disposition: The patient was transferred to ICU temporarily while waiting for accepting facility. Post-operative Condition: stable Disposition: ICU
[2023-06-13 20:10] LABS: INR 1.8 (0.9-1.3); Prothrombin Time 21.3 SECONDS (9.4-12.5)
[2023-06-13 20:13] LABS: PTT Partial Thromboplastin Tim 34 SECONDS (25.1-36.5)
[2023-06-13 20:16] LABS: Alanine Aminotransferase 7 IU/L (<35); Albumin 1.4 g/dL (3.5-5.0); Albumin Globulin Ratio 0.6 (1.0-2.8); Alkaline Phosphatase 33 U/L (38-126); Aspartate Aminotransferase 12 IU/L (14-36); BUN Creatinine Ratio 11.1 (6-22); Bilirubin Total 0.5 mg/dL (0.2-1.3); Blood Urea Nitrogen 3 mg/dL (7-17); Calcium 6.8 mg/dL (8.4-10.2); Carbon Dioxide 14 mmol/L (22-32); Chloride 107 mmol/L (98-107); Estimated Glomerular Filt Rate > 60 mL/min (>60); Globulin 2.2 g/dL (1.7-4.1); Glucose 85 mg/dL (70-100); HEMOLYSIS < 15 (0-50); Potassium 3.8 mmol/L (3.4-5.1); Sodium 131 mmol/L (137-145); Total Protein 3.6 g/dL (6.3-8.2)
--- NOTE | 2023-06-13 20:58 | PM.GYNOP.1 ---
Operative Date/Time/Diagnoses Date of procedure: 06/13/23 Time of procedure: 20:59 Pre-op diagnosis: Left ovarian mass Left lower quadrant pain Post-op diagnosis: same Procedure & Clinicians Procedure: Procedures Operation Date: 06/13/23 12:45 Actual Procedure Side Surgeon p DIAGNOSTIC LAPAROSCOPY-ATTEMPTED, PERFORATED BOWEL, RIGHT SALPINGECTOMY, EXPLORATORY LAPAROTOMY, REPAIR SMALL BOWEL ENTEROTOMY, LYSIS OF ADHESIONS, SIGMOID COLECTOMY, SIGMOIDOSCOPY, TEMPORARY ABDOMINAL CLOSURE Kathie Saavedra MD Indications: 42-year-old with persistent left adnexal mass and left lower quadrant pain Appears on ultrasound to have a dermoid cyst of the left ovary Surgeon: Kathie Saavedra Poker Manager: Luis Lopez Anesthesia Type: General and Local Operative Notes Findings: Inadvertent enterotomy with first trocar placement Bloc pelvis Right fallopian tube edematous Significant inflammation of the large and small bowel Unable to visualize uterus, bladder, left ovary Significant adhesions of the large and small bowel Specimen(s): right tube Applied: catheter (Wright to continuous drainage) Blood products transfused: none Procedure in detail: After informed consent was obtained, the patient was taken to the operating room where she was placed in the dorsal supine position. After adequate general endotracheal anesthesia was achieved, she was placed in the dorsal lithotomy position, and prepped and draped in the usual sterile fashion. A time-out was performed. A bivalve speculum was placed into the vagina and the anterior lip of the cervix was grasped with a single-tooth tenaculum. The cervical os was sequentially dilated until the Zumi uterine manipulator could pass easily into the endometrial cavity. The single-tooth tenaculum was removed from the anterior lip of the cervix. The bivalve speculum was removed from the vagina. Attention was then turned to the abdomen where 6 cc of 0.5% Marcaine with epinephrine were injected in the umbilical fold. A 5 mm incision was made. The Veress needle was placed into the peritoneal cavity, and its placement confirmed by aspiration and drop test. The abdominal cavity was insufflated with 3.4 L of CO2. The Veress needle was removed, and with Vis A View, a 5 mm trocar was placed under direct visualization. The stylet was removed. Upon inspection with the laparoscoped the trocar was found to be in the small bowel. The carbon dioxide gas was turned off. General surgery was consulted. The remainder of the procedure is dictated by Dr. Lopez. The only addition to the procedure was that the right tube was found to be very edematous. After it was freed from surrounding tissue, it was grasped with a Frostproof. Using the power seal, the portion of the tube that could be visualized was amputated using cautery and cut. The tube was sent to pathology. Complications: other (Inadvertent enterotomy) Post-operative Condition: stable Disposition: ICU Plan for aftercare: Awaiting transfer to Tertiary [facility]
--- NOTE | 2023-06-13 21:22 | SUR.PHASEI ---
Patient transferred to ICU room 227 with cardiiac monitoring and with anesthesia and two RNs; patient remains intubated during transport. Bedside report given by OR surgical nurse to receiving ENROLLED AGENT.
--- NOTE | 2023-06-13 21:27 | DI.RAD.S_ITS ---
PROCEDURE: XR CHEST 1V INDICATIONS: Ng tube placement TECHNIQUE: One view of the chest was acquired. COMPARISON: [facility], CT, CT ABDOMEN PELVIS W CON, 05/13/2023, 14:05. FINDINGS: Surgical changes and devices: NG tube tip is below the left hemidiaphragm and is in the expected location of stomach lumen. ETT tip is at the level of huan and possibly extending to proximal right mainstem bronchus and can be pulled back 4 cm. Lungs and pleura: complete opacification of left hemithorax is seen with mediastinal shift to the left. Right lung is clear. No pleural effusion or pneumothorax. Mediastinum: Mediastinal contours appear normal. Heart size is normal. Bones and chest wall: No suspicious bony lesions. Overlying soft tissues appear unremarkable. IMPRESSION: Complete opacification of left hemithorax suggestive of extensive left lung atelectasis. Mediastinal shift to the left is seen. Right lung is clear. ETT tip appears into in to right proximal mainstem bronchus, should be pulled back by 4 cm. NG tube tip is below the left hemidiaphragm expected location of stomach lumen. Dictated by: Cornelio Cantor M.D. on 06/13/2023 at 21:58 Approved by: Cornelio Cantor M.D. on 06/13/2023 at 22:01
[2023-06-13 21:35] VITALS: BP 103/62; PULSE 79; RESP 16; O2SAT 100
--- NOTE | 2023-06-13 22:32 | PM.CN.EICU ---
History of Present Illness Consult details IF CAMERA ACTIVATED, patient seen via real-time interactive audiovisual communication: Camera activated Date Patient Seen: 06/13/23 Chief complaint: Dx Laparoscopy Consent obtained for tele-divorce lawyer care: Yes Patient Location: ICU Provider location (State): [place] Other participants/roles: RN Narrative: 42 yo female who who presented for a diagnostic laparoscopy with possible salphingectomy, possible L ovarian cystectomy vs. oopherectomy. Procedure was complicated by inadvertent enterotomy on first trocar placement. General surgery was consulted. Dense adhesions were encountered; a L pelvic abscess was drained and a sigmoid colectomy was performed; the cause was deemed to be severe sigmoid diverticulitis. The abdomen was temporarily closed. Efforts are underway for tertiary care transfer for definitive repair. Admitted to ICU due to ongoing mechanical ventilation. Post-operatively, has required NE for hemodynamic support. [facility], [facility] Social History Smoking Status: Never smoker alcohol intake: current Current Medications Current Medications Medications: Home Medications oxycodone 5 mg tablet 5 mg PO Q6H PRN pain #14 tabs 05/13/23 [Rx Confirmed 06/12/23] oxycodone 5 mg tablet 5 mg PO Q6H PRN pain #14 tabs 05/13/23 [Rx Confirmed 06/12/23] oxycodone 5 mg tablet 5 mg PO Q6H PRN pain #14 tabs 05/13/23 [Rx Confirmed 06/12/23] oxycodone 5 mg tablet 5 mg PO QID PRN pain #14 tabs 05/13/23 [Rx Confirmed 06/12/23] oxycodone-acetaminophen 5 mg-325 mg tablet (Percocet) 1 tab PO QID PRN pain #14 tabs 05/13/23 [Rx Confirmed 06/12/23] oxycodone 5 mg tablet 5 mg PO Q4H PRN pain #14 tabs 06/13/23 [Rx] Exam Vital Signs (past 8 hours): - 06/13/23 21:32 Fraction of Inspired Oxygen 40 Fraction of Inspired Oxygen 40 Oxygen Delivery Method Room Air Resp Other: VENT 60% TV 500 mL RR 16 PEEP 5 cm H20 Cardio Rate: regular rate Rhythm: regular rhythm Neuro Other: RASS -3 Propofol 75 mcg/kg/min Objective Labs 06/13/23 19:45 06/13/23 19:45 Labs: Laboratory Results - last 24 hr 06/13/23 19:45 WBC 14.5 H RBC 3.87 L Hgb 10.6 L Hct 32.4 L MCV 83.8 MCH 27.5 MCHC 32.8 RDW 15.7 H Plt Count 191 Neut % (Auto) 93.6 H Lymph % (Auto) 5.1 L [place] % (Auto) 1.1 L Eos % (Auto) 0.0 L Baso % (Auto) 0.2 Neut # (Auto) 74905 H Lymph # (Auto) 700 L [place] # (Auto) 200 Eos # (Auto) 0 Baso # (Auto) 0 PT 21.3 H INR 1.8 H APTT 34 Sodium 131 L Potassium 3.8 Chloride 107 Carbon Dioxide 14 L BUN 3 L Creatinine 0.27 L Estimated GFR > 60 BUN/Creatinine Ratio 11.1 Glucose 85 Calcium 6.8 L Total Bilirubin 0.5 AST 12 L ALT 7 Alkaline Phosphatase 33 L Total Protein 3.6 L Albumin 1.4 L Globulin 2.2 Albumin/Globulin Ratio 0.6 L Blood Type A Positive Antibody Screen Negative Crossmatch See Detail Assessment & Plan Assessment and plan (1) S/P colectomy: Status: Acute 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 (2) Sigmoid diverticulitis: Status: Acute Plan: -Continue vancomycin/Zosyn pending body fluid culture and MRSA screen (3) On mechanically assisted ventilation: Status: Acute Plan: -Vent bundle -Propofol/fentanyl analgosedation (4) Severe protein-calorie malnutrition: Problem details: Noted severe hypoalbuminemia Status: Acute Plan: -Recommend early TPN initiation if definitive surgical repair and bowel function is delayed (5) Hypotension after procedure: Problem details: May be due to residual anesthesia and fluid shifts Status: Acute Plan: -Continue NE -Bolus 1L LR now and start D5LR (glucose in 80s) Assessment & Plan narrative: I spent a total of 40 minutes of aggregate critical care time on this patient's care today; this time excludes all procedural time.
[2023-06-13] MEDS: propofoL 1,000 MG/100 ML VIAL 89.403 MG IV (22:40)
[2023-06-13] MEDS: fentaNYL 1,000 MCG in DEXTROSE 5% IN WATER 230 ML 17.384 MCG IV (22:51)
[2023-06-13] MEDS: DEXTROSE 5%-LACTATED RINGERS 1,000 ML 84 ML IV (22:54)
[2023-06-13 23:04] LABS: COVID19 -Nasal RAPID Negative (Negative)
[2023-06-13] MEDS: LACTATED RINGERS 500 ML 1000 ML IV (23:28)
[2023-06-13 23:30] VITALS: BP 113/74; PULSE 93; RESP 16; O2SAT 99
[2023-06-13] MEDS: VANCOMYCIN 2,000 MG/400 ML PIGGYBACK 200 MG IV (23:49)
[2023-06-14] VITALS: BMI 38.7
[2023-06-14] MEDS: CHLORHEXIDINE GLUCONATE 15 ML CUP PO
--- NOTE | 2023-06-14 | PATH_ITS ---
Note [facility] Accession Number: [id number] TESTS RESULT FLAG UNITS REF RANGE LAB Clinician Provided Cytology Information No. of containers..01 Other (Miscellaneous) Source: PERITONEAL WASHINGS DIAGNOSIS: PERITONEAL WASHINGS NEGATIVE FOR MALIGNANT CELLS. FEW MESOTHELIAL CELLS ARE PRESENT. THIS INTERPRETATION INCLUDES EVALUATION OF A CELL BLOCK. Pathologist ICD10: 01 N83.299 Signed out by: Yojana Perez MD, Pathologist NPI- [id number] Performed by: Driss Wang, Log Sorting Supervisor ([facility]) Gross description: 55 CC, RED, CLOUDY RECEIVED FRESH IN BLUE CAP CONTAINER. KORI /EdvinZA 06/17/2023 0932 Local FLAG LEGEND: L-Low Normal,H-High Normal,LL-Alert Low,HH-Alert High <-Panic Low,>-Panic High,A-Abnormal,AA-Critical Abnormal Performed at: 01 =Z [facility] [address], [place] [address] Hair Buitrago MD, Performed at: 01 [facility] [address], [place], [place] [id number] MD Hair Buitrago MD Phone: [phone]
[2023-06-14 00:10] LABS: Add Manual Diff / Slide Review NO; Basophils Absolute Auto 0 /uL (0-100); Basophils Percent Auto 0.2 % (0-2); Eosinophils Absolute Auto 0 /uL (0-450); Hematocrit 33.7 % (36-46); Hemoglobin 11.1 g/dL (12.0-16.0); Lymphocytes Absolute Auto 800 /uL (1100-4500); Lymphocytes Percent Auto 6.3 % (25-40); Mean Corpuscular Volume 81.9 fL (80-100); Monocytes Absolute Auto 500 /uL (0-900); Monocytes Percent Auto 4.1 % (3-14); Neutrophils Absolute Auto 11700 /uL (1500-7000); Neutrophils Percent Auto 89.4 % (50-75); Platelet Count 391 X10^3/uL (150-400); Red Blood Cell Count 4.11 X10^6/uL (4.0-5.2); Red Cell Distribution Width 15.2 % (11.6-14.8); White Blood Cell Count 13.1 X10^3/uL (4.5-11.0)
[2023-06-14 00:31] LABS: INR 1.3 (0.9-1.3); Prothrombin Time 15.2 SECONDS (9.4-12.5)
[2023-06-14 00:36] LABS: Alanine Aminotransferase 14 IU/L (<35); Albumin 3.1 g/dL (3.5-5.0); Albumin Globulin Ratio 0.8 (1.0-2.8); Alkaline Phosphatase 62 U/L (38-126); Aspartate Aminotransferase 24 IU/L (14-36); BUN Creatinine Ratio 15.1 (6-22); Bilirubin Total 1.6 mg/dL (0.2-1.3); Blood Urea Nitrogen 8 mg/dL (7-17); Calcium 8.4 mg/dL (8.4-10.2); Carbon Dioxide 22 mmol/L (22-32); Chloride 105 mmol/L (98-107); Estimated Glomerular Filt Rate > 60 mL/min (>60); Globulin 3.9 g/dL (1.7-4.1); Glucose 169 mg/dL (70-100); HEMOLYSIS < 15 (0-50); Potassium 3.1 mmol/L (3.4-5.1); Sodium 138 mmol/L (137-145)
[2023-06-14] MEDS: propofoL 1,000 MG/100 ML VIAL 32.781 MG IV (01:14)
[2023-06-14 02:00] VITALS: BP 112/68; PULSE 94; RESP 16; O2SAT 99
--- NOTE | 2023-06-14 03:22 | RT ---
Pt was transferred at 0300
== END 2023-06-14 03:00 | disposition short-term general hospital (02) | DRG 329 ==
LOC: OR 14:34 → AC 07-09 12:33 → ICU 07-09 12:34
PROVIDERS: Internal Medicine Critical Care Medicine; Student in an Organized Health Care Education/Training Program; Admitting Provider Obstetrics & Gynecology; Referring Provider Obstetrics & Gynecology; Visit Provider Obstetrics & Gynecology
PROC: 0UJD4ZZ Inspection of Uterus and Cervix, Percutaneous Endoscopic Approach (ICD-10-PCS; CPT 58661; principal; 2023-06-13 12:45)
DX: R10.32 Left lower quadrant pain (principal); E43 Unspecified severe protein-calorie malnutrition; K91.71 Accidental puncture and laceration of a digestive system organ or structure during a digestive system procedure; N99.71 Accidental puncture and laceration of a genitourinary system organ or structure during a genitourinary system procedure; K57.32 Diverticulitis of large intestine without perforation or abscess without bleeding; D27.1 Benign neoplasm of left ovary; N83.8 Other noninflammatory disorders of ovary, fallopian tube and broad ligament; N73.6 Female pelvic peritoneal adhesions (postinfective); Y65.8 Other specified misadventures during surgical and medical care; Y76.3 Surgical instruments, materials and obstetric and gynecological devices (including sutures) associated with adverse incidents; Y92.234 Operating room of hospital as the place of occurrence of the external cause; E88.09 Other disorders of plasma-protein metabolism, not elsewhere classified; I95.81 Postprocedural hypotension; Z11.52 Encounter for screening for COVID-19; Z68.38 Body mass index [BMI] 38.0-38.9, adult
CPT/HCPCS: 44602; 44143; 58661; 71045; 80053; 85025; 85610; 85730; 86850; 86900; 86901; 87070; 87075; 87205; 87635; 94002; 94799; J0690; J1100; J1170; J1885; J2250; J2405; J2543; J2704; J3010; J7121